=== PATIENT | female | born 1985 ===

== ENCOUNTER 2017-02-13 10:10 | Emergency (ER) | payer OTHER ==
--- NOTE | 2017-02-13 10:33 | UC ---
Lower Extremity/Ankle HPI - HPI Summary HPI Summary: 1) about 2 months ago fell on the stairs and injured L ankle. Since then pain has improved somewhat but is not going away. 2) last year broke R distal tibia but never went for follow-up orthopedic care and area feels achy, pt is concerned it didn't heal correctly. - History of Current Complaint Stated Complaint: RIGHT ANKLE INJURY Time Seen by Provider: 02/13/17 10:17 Hx Obtained From: Patient Hx Last Menstrual Period: two to three months ago ?: No Onset/Duration: Sudden Onset Severity Initially: Moderate Severity Currently: Mild Aggravating Factor(s): Standing, Ambulation Alleviating Factor(s): Rest Able to Bear Weight: Yes - Allergies/Home Medications Allergies/Adverse Reactions: Allergies Allergy/AdvReac Type Severity Reaction Status Date / Time No Known Allergies Allergy Verified 02/13/17 10:33 Home Medications: Home Medications Mirtazapine TAB* [Remeron TAB*] 45 mg PO BEDTIME 02/13/17 [History Confirmed ] Prazosin CAP* [Minipress CAP*] 5 mg PO DAILY 02/13/17 [History Confirmed ] Sertraline* [Zoloft*] 150 mg PO DAILY 02/13/17 [History Confirmed 02/13/17] Zolpidem TAB* [Ambien*] 10 mg PO BEDTIME PRN 02/13/17 [History Confirmed ] PMH/Surg Hx/FS Hx/Imm Hx Cardiovascular History: Hypertension Psychological History: Anxiety, Depression, Post Traumatic Stress Disorder - Surgical History Surgical History: Yes Surgery Procedure, Year, and Place: - Family History Known Family History: Positive: Cardiac Disease, Hypertension Negative: Diabetes - Social History Occupation: Unemployed Alcohol Use: Occasionally Substance Use Type: None Smoking Status (MU): Current Some Day Smoker Household Exposure Type: Cigarettes Cessation Counseling: Patient Advised to Stop - Immunization History Most Recent Influenza Vaccination: Not the 2016/2016 Season Review of Systems Constitutional: Negative Skin: Negative Eyes: Negative ENT: Negative Respiratory: Negative Cardiovascular: Negative Gastrointestinal: Negative Genitourinary: Negative Motor: Negative Neurovascular: Negative Musculoskeletal: Arthralgia - R lower leg, L ankle Neurological: Negative Psychological: Negative All Other Systems Reviewed And Are Negative: Yes Physical Exam Triage Information Reviewed: Yes Appearance: Obese Vital Signs Reviewed: Yes Eye Exam: Normal Eyes: Positive: Conjunctiva Clear ENT Exam: Normal ENT: Positive: Normal ENT inspection, Hearing grossly normal, Pharynx normal, TMs normal Dental Exam: Normal Neck exam: Normal Neck: Positive: Supple, Nontender Respiratory Exam: Normal Respiratory: Positive: Chest non-tender, Lungs clear, Normal breath sounds, No respiratory distress, No accessory muscle use Cardiovascular Exam: Normal Cardiovascular: Positive: RRR, No Murmur Musculoskeletal Exam: Other - L distal fibular tenderness Musculoskeletal: Positive: Strength Intact, ROM Intact Neurological Exam: Normal Psychological Exam: Normal Skin Exam: Normal Lower Extremity Course/Dx - Differential Dx/Diagnosis Provider Diagnoses: L ankle sprain. R lower leg pain Discharge - Discharge Plan Condition: Stable Disposition: HOME Patient Education Materials: Ankle Sprain (ED) Referrals: Breann Beltran MD [Primary Care Provider] - Carlos Adan MD [Medical Doctor] - 1 Week Additional Instructions: When your pain is getting particularly bad, I recommend you elevate your ankle(s ) and ice the area for 15-20 minutes.
[2017-02-13 10:41] VITALS: BP 126/77
--- NOTE | 2017-02-13 11:04 | RAD ---
INDICATION: Bilateral ankle pain history of prior injuries to both ankles. TECHNIQUE: 3 views of both ankles were obtained. FINDINGS: There is mild bilateral soft tissue swelling. The bones are normal alignment. Joint spaces appear maintained. No fracture is seen. IMPRESSION: SOFT TISSUE SWELLING, NO EVIDENCE FOR FRACTURE OR ARTHRITIC CHANGE.
== END 2017-02-13 11:16 | disposition home or self-care (01) ==
LOC: UCCORT 10:10
DX: S93.402A Sprain of unspecified ligament of left ankle, initial encounter (principal); W10.9XXA Fall (on) (from) unspecified stairs and steps, initial encounter; Y93.9 Activity, unspecified; Y92.9 Unspecified place or not applicable; M79.661 Pain in right lower leg; Z32.02 Encounter for pregnancy test, result negative; I10 Essential (primary) hypertension; F41.9 Anxiety disorder, unspecified; F32.9 Major depressive disorder, single episode, unspecified; Z72.0 Tobacco use
CPT/HCPCS: 84702; 99213; G0463